=== PATIENT | male | born 1985 | race Caucasian/White ===

== ENCOUNTER 2016-08-05 16:30 | Emergency (ER) | payer OTHER ==
[2016-08-05] MEDS ORDERED: KETOROLAC 30 MG/ML VIAL (J1885) As Ordered ONE (16:48)
--- NOTE | 2016-08-05 17:56 | EDDOCDS ---
Physician Documentation [facility] Name: Davis Brody Age: 31 yrs Sex: Male : 1985 Arrival Date: 08/05/2016 Time: 16:30 Bed PR Private MD: Karely Mcgowan Disposition: 08/05/16 17:50 Discharged to Home/Self Care. Impression: Low back pain. - Condition is Stable. - Discharge Instructions: Flank Pain, Back Pain, Adult, [id number]. - Prescriptions for Diclofenac Sodium 75 mg Oral Tablet, Delayed Release (E.C.) - take 1 tablet by ORAL route 2 times per day; 30 tablet. Robaxin- 750 750 mg Oral Tablet - take 1 tablet by ORAL route every 6 hours As needed; 40 tablet. - Medication Reconciliation, Local Pharmacy Hours form. - Follow up: Karely Mcgowan; When: Call to arrange an appointment; Reason: Further diagnostic work-up, Recheck today's complaints, Continuance of care. - Problem is new. - Symptoms have improved. Historical: - Allergies: PENICILLINS; Seasonal; - Home Meds: 1. none - PMHx: none; - PSHx: none; - Social history: Smoking status: Patient states was never smoker of tobacco. No barriers to communication noted, The patient speaks fluent Malagasy, Speaks appropriately for age. - Family history: Not pertinent. - : The pt / caregiver states he / she is not on anticoagulants. Home medication list is obtained from the patient. - Exposure Risk Screening:: None identified. Vital Signs: 08/05 16:32 BP 159 / 86; Pulse 65; Resp 16; Temp 96.2(O); Pulse Ox 100% on R/A; Weight 86.18 kg / sew 189.99 lbs; Height 5 ft. 11 in. (180.34 cm); Pain 7/10; 17:52 BP 130 / 70; Pulse 65; Resp 18; Temp 96.6(T); Pulse Ox 99% on R/A; Pain 5/10; jb5 16:32 Body Mass Index 26.50 (86.18 kg, 180.34 cm) sew MDM: 16:47 ketorolac 30 mg IM once ordered. btw 16:48 Urinalysis Ordered. EDMS 16:48 CT ABD & PELVIS: No Contrast Ordered. EDMS 17:08 Urinalysis Reviewed. btw 17:29 [facility] Payment Agreement was scanned into [employer] and attached to record. jp5 17:29 Financial registration complete. jp5 Administered Medications: 16:55 Drug: ketorolac 30 mg [ketorolac 30 mg/mL (1 mL) injection solution (1 mL)] Route: IM; [facility] Site: right gluteus; Signatures: Dispatcher [employer] EDMS Aníbal Brown, RN RN ml6 Alphonse Cesar PA PA btw April CourtneyRN RN ld5 Timbo Spaulding jp5 Melissa Noland RN [facility] The chart was reviewed and I authenticate all verbal orders and agree with the evaluation and treatment provided.Attachments: 17:29 [facility] Payment Agreement jp5 MTDD
--- NOTE | 2016-08-05 17:56 | EDDOCDS ---
Nurse's Notes [facility] Name: Davis Brody Age: 31 yrs Sex: Male : 1985 Arrival Date: 08/05/2016 Time: 16:30 Bed PR1 / 25 Private MD: Karely Mcgowan Diagnosis: Low back pain Presentation: 08/05 16:35 Presenting complaint: Patient states: Pain to left lower back for past 4 days. No known ld5 injury. Denies any urinary symptoms. Acute neurological deficits are not present. Mechanism of Injury: No Mechanism of Injury. Adult Sepsis Screening: The patient does not have new or worsening altered mentation. Patient's respiratory rate is less than 22. Systolic blood pressure is greater than 100. Patient has a qSOFA score of 0- Negative Sepsis Screen. Suicide/Homicide risk assessment- the patient denies having any suicidal and/or homicidal ideations and does not present with any other emotional, behavioral or mental health complaints. Status: Patient is not a senior service technician or dependent. Transition of care: patient was not received from another setting of care. 16:35 Acuity: DIALLO Level 4 ld5 16:35 Method Of Arrival: Walkin/Carried/Asstd ld5 Triage Assessment: 16:38 General: Appears in no apparent distress. Pain: Location: left low back Pain currently ld5 is 6 out of 10 on a pain scale. At worst was 8 out of 10 on a pain scale. Quality of pain is described as dull, Alleviated by nothing. Aggravated by nothing. HIV screening NA for this visit Offered previously. Neurological: Level of Consciousness is awake, alert. Respiratory: Airway is patent Respiratory effort is even, unlabored. GI: Denies nausea, vomiting. : Denies burning with urination, inability to void, pain with urination. Musculoskeletal: Range of motion intact in all extremities. Historical: - Allergies: PENICILLINS; Seasonal; - Home Meds: 1. none - PMHx: none; - PSHx: none; - Social history: Smoking status: Patient states was never smoker of tobacco. No barriers to communication noted, The patient speaks fluent Iraqi, Speaks appropriately for age. - Family history: Not pertinent. - : The pt / caregiver states he / she is not on anticoagulants. Home medication list is obtained from the patient. - Exposure Risk Screening:: None identified. Screenin:54 Screening information is obtained from the patient. Fall risk: No risks identified. ml6 Assistance ADL's: requires no assistance with activities of daily living. Abuse/DV Screen: The patient / caregiver reports he/she is: not in a situation that causes fear, pain or injury. Nutritional screening: No deficits noted. Advance Directives: Currently, there is no health care proxy. home support is adequate. Assessment: 17:54 General: Appears in no apparent distress, Behavior is appropriate for age, cooperative. ml6 Pain: Denies pain. Neurological: No deficits noted. Level of Consciousness is awake, alert, Oriented to person, place, time. Cardiovascular: No deficits noted. Respiratory: No deficits noted. Vital Signs: 16:32 BP 159 / 86; Pulse 65; Resp 16; Temp 96.2(O); Pulse Ox 100% on R/A; Weight 86.18 kg; sew Height 5 ft. 11 in. (180.34 cm); Pain 7/10; 17:52 BP 130 / 70; Pulse 65; Resp 18; Temp 96.6(T); Pulse Ox 99% on R/A; Pain 5/10; jb5 16:32 Body Mass Index 26.50 (86.18 kg, 180.34 cm) [facility] Vitals: 16:32 Log In Time: August 05, 2016 at 16:31. [facility] ED Course: 16:32 Patient visited by Rosario Torres. sew 16:32 Karely Mcgowan is Private Physician. sew 16:32 Patient moved to Waiting sew 16:33 Patient visited by Rosario Torres. sew 16:33 Patient moved to Pre RCE sew 16:37 Triage Initiated ld5 16:40 Patient visited by April Courtney RN. ld5 16:40 Patient moved to Triage 3 ld5 16:43 [facility] btw 16:43 Ari Pastor MD is Attending Physician. btw 16:43 Patient visited by Alphonse Cesar PA. btw 16:52 Urinalysis Sent. jb5 16:55 Urine collected. Clean catch specimen. Urine specimen sent to lab. ld5 17:03 Patient moved to [address] 17:21 Patient name changed from Davis\S\V\S\Gervera\S\ to Davis\S\Vincmel\S\Norrisa. EDMS 17:29 [facility] Payment Agreement was scanned into [employer] and attached to record. jp5 17:47 Patient moved to PR ld5 17:48 Patient visited by Kirsten Kramer PCA. jb5 17:50 Karely Mcgowan is Referral Physician. btw 17:52 Patient visited by Kirsten Kramer PCA. jb5 17:52 Patient visited by Kirsten Kramer PCA. jb5 17:54 The patient / caregiver is instructed regarding the plan of care and ED course. ml6 17:55 No IV's were initiated during this patient's visit. No procedures done that require ml6 assistance. Administered Medications: 16:55 Drug: ketorolac 30 mg [ketorolac 30 mg/mL (1 mL) injection solution (1 mL)] Route: IM; [facility] Site: right gluteus; Order Results: Lab Order: Urinalysis; SPEC'M 08/05/16 16:51 Test: APPEARANCE, URINE; Value: CLEAR; Range: CLEAR; Status: F Test: COLOR, URINE; Value: STRAW; Range: YELLOW; Status: F Test: PH,URINE; Value: 5.0; Range: 5.0-9.0; Units: UNITS; Status: F Test: SPECIFIC GRAVITY URINE AUTO; Value: 1.009; Range: 1.002-1.035; Status: F Test: PROTEIN, URINE AUTO; Value: NEGATIVE; Range: NEGATIVE; Units: mg/dL; Status: F Test: GLUCOSE, URINE (UA) AUTO; Value: NEGATIVE; Range: NEGATIVE; Units: mg/dL; Status: F Test: KETONE, URINE AUTO; Value: NEGATIVE; Range: NEGATIVE; Units: mg/dL; Status: F Test: UROBILINOGEN, URINE AUTO; Value: 0.2; Range: 0.0-2.0; Units: mg/dL; Status: F Test: BILIRUBIN, URINE AUTO; Value: NEGATIVE; Range: NEGATIVE; Status: F Test: NITRITE, URINE AUTO; Value: NEGATIVE; Range: NEGATIVE; Status: F Test: LEUKOCYTE ESTERASE, URINE AUTO; Value: NEGATIVE; Range: NEGATIVE; Status: F Test: BLOOD, URINE BLOOD; Value: 1+; Range: NEGATIVE; Abnormal: Above high normal; Status: F Test: WBC, URINE AUTO; Value: 0; Range: 0-3; Units: /HPF; Status: F Test: RBC, URINE AUTO; Value: 1; Range: 0-3; Units: /HPF; Status: F Test: BACTERIA, URINE AUTO; Value: NEGATIVE; Range: NEGATIVE; Status: F Test: SQUAMOUS EPITHELIAL CELL UR AU; Value: 0; Range: 0-6; Units: /HPF; Status: F Test: MUCUS, URINE; Value: SMALL; Range: NEGATIVE; Status: F Test: HYALINE CAST, URINE AUTO; Value: 0; Range: 0-1; Units: /LPF; Status: F Outcome: 17:50 Discharge ordered by Provider. btw 17:54 Discharge Assessment: patient administered narcotics - no. The following High Risk ml6 Discharge criteria are identified: None. Discharged to home ambulatory, with friend. Condition: improved. Discharge instructions given to patient, Instructed on discharge instructions, follow up and referral plans. medication usage, Demonstrated understanding of instructions, medications, Pt was receptive of discharge instructions/ teaching. Prescriptions given X 2. No special radiology studies were completed. Property :Personal belongings accompany Pt. 17:55 Patient left the ED. ml6 Signatures: Dispatcher [employer] EDMS Kirsten Kramer, SERVICE DESK AGENT SERVICE DESK AGENT jb5 Aníbal Brown, RN RN ml6 Alphonse Cesar PA PA btw April Courtney,RN RN ld5 Melissa Noland,RN RN [facility] Brian, Timbo Wall jp5 MTDD
--- NOTE | 2016-08-05 18:02 | REP ---
CT abdomen and pelvis without IV or oral contrast: Renal stone protocol. History: Left flank pain. CT findings: Preliminary digital chair inspector radiograph is unremarkable. The lung bases are clear. The liver and the spleen are normal in size and homogeneous in texture. No adrenal lesion is seen on either side. Pancreas is unremarkable. The gallbladder is small and contracted. Normal appendix is seen in the right lower quadrant. Small and large intestinal bowel loops are unremarkable. There is no evidence of intrarenal calculus on either side. No bladder calculus is seen. No hydronephrosis noted. Bone window settings show no bony destructive lesion. No abdominal wall defect is observed. Impression: Negative CT study of the abdomen and pelvis without IV or oral contrast. No urinary tract calculus or hydronephrosis is seen. Normal appendix seen. Signed by Nikos Culp MD 08/05/2016 07:28 P
--- NOTE | 2016-08-09 09:35 | EDDOCDS ---
Physician Documentation [facility] Name: Davis Brody Age: 31 yrs Sex: Male : 1985 Arrival Date: 08/05/2016 Time: 16:30 Bed PR Private MD: Karely Mcgowan Disposition: 08/05/16 17:50 Discharged to Home/Self Care. Impression: Low back pain. - Condition is Stable. - Discharge Instructions: Flank Pain, Back Pain, Adult, [id number]. - Prescriptions for Diclofenac Sodium 75 mg Oral Tablet, Delayed Release (E.C.) - take 1 tablet by ORAL route 2 times per day; 30 tablet. Robaxin- 750 750 mg Oral Tablet - take 1 tablet by ORAL route every 6 hours As needed; 40 tablet. - Medication Reconciliation, Local Pharmacy Hours form. - Follow up: Karely Mcgowan; When: Call to arrange an appointment; Reason: Further diagnostic work-up, Recheck today's complaints, Continuance of care. - Problem is new. - Symptoms have improved. Historical: - Allergies: PENICILLINS; Seasonal; - Home Meds: 1. none - PMHx: none; - PSHx: none; - Social history: Smoking status: Patient states was never smoker of tobacco. No barriers to communication noted, The patient speaks fluent Paraguayan, Speaks appropriately for age. - Family history: Not pertinent. - : The pt / caregiver states he / she is not on anticoagulants. Home medication list is obtained from the patient. - Exposure Risk Screening:: None identified. Vital Signs: 08/05 16:32 BP 159 / 86; Pulse 65; Resp 16; Temp 96.2(O); Pulse Ox 100% on R/A; Weight 86.18 kg / sew 189.99 lbs; Height 5 ft. 11 in. (180.34 cm); Pain 7/10; 17:52 BP 130 / 70; Pulse 65; Resp 18; Temp 96.6(T); Pulse Ox 99% on R/A; Pain 5/10; jb5 16:32 Body Mass Index 26.50 (86.18 kg, 180.34 cm) sew MDM: 16:47 ketorolac 30 mg IM once ordered. btw 16:48 Urinalysis Ordered. EDMS 16:48 CT ABD & PELVIS: No Contrast Ordered. EDMS 17:08 Urinalysis Reviewed. btw 17:29 [facility] Payment Agreement was scanned into [employer] and attached to record. jp5 17:29 Financial registration complete. jp5 08/06 08:57 T-Sheet-- Draft Copy was scanned into [employer] and attached to record. [facility] Administered Medications: 08/05 16:55 Drug: ketorolac 30 mg [ketorolac 30 mg/mL (1 mL) injection solution (1 mL)] Route: IM; [facility] Site: right gluteus; Signatures: Dispatcher MedHost EDMS Aníbal Brown, RN RN ml6 Alphonse Cesar PA PA btw April Courtney,RN RN luanne5 Timbo Spaulding jp5 Rosario Bolanos Jane RN [facility] The chart was reviewed and I authenticate all verbal orders and agree with the evaluation and treatment provided.Attachments: 17:29 [facility] Payment Agreement jp5 08/06 08:57 T-Sheet-- Draft Copy [facility] Chart Complete MTDD
--- NOTE | 2016-08-09 09:36 | EDDOCDS ---
Nurse's Notes [facility] Name: Davis Brody Age: 31 yrs Sex: Male : 1985 Arrival Date: 08/05/2016 Time: 16:30 Bed PR1 / 25 Private MD: Karely Mcgowan Diagnosis: Low back pain Presentation: 08/05 16:35 Presenting complaint: Patient states: Pain to left lower back for past 4 days. No known ld5 injury. Denies any urinary symptoms. Acute neurological deficits are not present. Mechanism of Injury: No Mechanism of Injury. Adult Sepsis Screening: The patient does not have new or worsening altered mentation. Patient's respiratory rate is less than 22. Systolic blood pressure is greater than 100. Patient has a qSOFA score of 0- Negative Sepsis Screen. Suicide/Homicide risk assessment- the patient denies having any suicidal and/or homicidal ideations and does not present with any other emotional, behavioral or mental health complaints. Status: Patient is not a donor services team leader or dependent. Transition of care: patient was not received from another setting of care. 16:35 Acuity: DIALLO Level 4 ld5 16:35 Method Of Arrival: Walkin/Carried/Asstd ld5 Triage Assessment: 16:38 General: Appears in no apparent distress. Pain: Location: left low back Pain currently ld5 is 6 out of 10 on a pain scale. At worst was 8 out of 10 on a pain scale. Quality of pain is described as dull, Alleviated by nothing. Aggravated by nothing. HIV screening NA for this visit Offered previously. Neurological: Level of Consciousness is awake, alert. Respiratory: Airway is patent Respiratory effort is even, unlabored. GI: Denies nausea, vomiting. : Denies burning with urination, inability to void, pain with urination. Musculoskeletal: Range of motion intact in all extremities. Historical: - Allergies: PENICILLINS; Seasonal; - Home Meds: 1. none - PMHx: none; - PSHx: none; - Social history: Smoking status: Patient states was never smoker of tobacco. No barriers to communication noted, The patient speaks fluent Belgian, Speaks appropriately for age. - Family history: Not pertinent. - : The pt / caregiver states he / she is not on anticoagulants. Home medication list is obtained from the patient. - Exposure Risk Screening:: None identified. Screenin:54 Screening information is obtained from the patient. Fall risk: No risks identified. ml6 Assistance ADL's: requires no assistance with activities of daily living. Abuse/DV Screen: The patient / caregiver reports he/she is: not in a situation that causes fear, pain or injury. Nutritional screening: No deficits noted. Advance Directives: Currently, there is no health care proxy. home support is adequate. Assessment: 17:54 General: Appears in no apparent distress, Behavior is appropriate for age, cooperative. ml6 Pain: Denies pain. Neurological: No deficits noted. Level of Consciousness is awake, alert, Oriented to person, place, time. Cardiovascular: No deficits noted. Respiratory: No deficits noted. Vital Signs: 16:32 BP 159 / 86; Pulse 65; Resp 16; Temp 96.2(O); Pulse Ox 100% on R/A; Weight 86.18 kg; sew Height 5 ft. 11 in. (180.34 cm); Pain 7/10; 17:52 BP 130 / 70; Pulse 65; Resp 18; Temp 96.6(T); Pulse Ox 99% on R/A; Pain 5/10; jb5 16:32 Body Mass Index 26.50 (86.18 kg, 180.34 cm) [facility] Vitals: 16:32 Log In Time: August 05, 2016 at 16:31. [facility] ED Course: 16:32 Patient visited by Roasrio Torres. sew 16:32 Karely Mcgowan is Private Physician. sew 16:32 Patient moved to Waiting sew 16:33 Patient visited by Rosario Torres. sew 16:33 Patient moved to Pre RCE sew 16:37 Triage Initiated ld5 16:40 Patient visited by April Courtney RN. ld5 16:40 Patient moved to Triage 3 ld5 16:43 Alphonse Cesar PA [facility]. btw 16:43 Ari Pastor MD is Attending Physician. btw 16:43 Patient visited by Alphonse Cesar PA. btw 16:52 Urinalysis Sent. jb5 16:55 Urine collected. Clean catch specimen. Urine specimen sent to lab. ld5 17:03 Patient moved to [address] 17:21 Patient name changed from Davis\S\V\S\Gervera\S\ to Davis\S\Vincent\S\Norrisa. EDMS 17:29 [facility] Payment Agreement was scanned into [employer] and attached to record. jp5 17:47 Patient moved to PR ld5 17:48 Patient visited by Kirsten Kramer PCA. jb5 17:50 Karely Mcgowan is Referral Physician. btw 17:52 Patient visited by Kirsten Kramer PCA. jb5 17:52 Patient visited by Kirsten Kramer PCA. jb5 17:54 The patient / caregiver is instructed regarding the plan of care and ED course. ml6 17:55 No IV's were initiated during this patient's visit. No procedures done that require ml6 assistance. 18:38 CT ABD & PELVIS: No Contrast Returned. EDMS 08/06 08:57 T-Sheet-- Draft Copy was scanned into [employer] and attached to record. [facility] Administered Medications: 08/05 16:55 Drug: ketorolac 30 mg [ketorolac 30 mg/mL (1 mL) injection solution (1 mL)] Route: IM; [facility] Site: right gluteus; Order Results: Lab Order: Urinalysis; SPEC'M 08/05/16 16:51 Test: APPEARANCE, URINE; Value: CLEAR; Range: CLEAR; Status: F Test: COLOR, URINE; Value: STRAW; Range: YELLOW; Status: F Test: PH,URINE; Value: 5.0; Range: 5.0-9.0; Units: UNITS; Status: F Test: SPECIFIC GRAVITY URINE AUTO; Value: 1.009; Range: 1.002-1.035; Status: F Test: PROTEIN, URINE AUTO; Value: NEGATIVE; Range: NEGATIVE; Units: mg/dL; Status: F Test: GLUCOSE, URINE (UA) AUTO; Value: NEGATIVE; Range: NEGATIVE; Units: mg/dL; Status: F Test: KETONE, URINE AUTO; Value: NEGATIVE; Range: NEGATIVE; Units: mg/dL; Status: F Test: UROBILINOGEN, URINE AUTO; Value: 0.2; Range: 0.0-2.0; Units: mg/dL; Status: F Test: BILIRUBIN, URINE AUTO; Value: NEGATIVE; Range: NEGATIVE; Status: F Test: NITRITE, URINE AUTO; Value: NEGATIVE; Range: NEGATIVE; Status: F Test: LEUKOCYTE ESTERASE, URINE AUTO; Value: NEGATIVE; Range: NEGATIVE; Status: F Test: BLOOD, URINE BLOOD; Value: 1+; Range: NEGATIVE; Abnormal: Above high normal; Status: F Test: WBC, URINE AUTO; Value: 0; Range: 0-3; Units: /HPF; Status: F Test: RBC, URINE AUTO; Value: 1; Range: 0-3; Units: /HPF; Status: F Test: BACTERIA, URINE AUTO; Value: NEGATIVE; Range: NEGATIVE; Status: F Test: SQUAMOUS EPITHELIAL CELL UR AU; Value: 0; Range: 0-6; Units: /HPF; Status: F Test: MUCUS, URINE; Value: SMALL; Range: NEGATIVE; Status: F Test: HYALINE CAST, URINE AUTO; Value: 0; Range: 0-1; Units: /LPF; Status: F Radiology Order: CT ABD & PELVIS: No Contrast Test: CT ABD & PELVIS: No Contrast REASON FOR EXAMINATION: L flank pain; CT abdomen and pelvis without IV or oral contrast: Renal stone protocol.; ; History: Left flank pain.; ; CT findings: Preliminary digital program management manager radiograph is unremarkable. The lung; bases are clear. The liver and the spleen are normal in size and homogeneous in; texture. No adrenal lesion is seen on either side. Pancreas is unremarkable.; The gallbladder is small and contracted. Normal appendix is seen in the right; lower quadrant. Small and large intestinal bowel loops are unremarkable. There; is no evidence of intrarenal calculus on either side. No bladder calculus is; seen. No hydronephrosis noted. Bone window settings show no bony destructive; lesion. No abdominal wall defect is observed.; ; Impression:; ; Negative CT study of the abdomen and pelvis without IV or oral contrast. No; urinary tract calculus or hydronephrosis is seen. Normal appendix seen.; ; ; Signed by; Nikos Culp MD 08/05/2016 07:28 P; Outcome: 17:50 Discharge ordered by Provider. btw 17:54 Discharge Assessment: patient administered narcotics - no. The following High Risk ml6 Discharge criteria are identified: None. Discharged to home ambulatory, with friend. Condition: improved. Discharge instructions given to patient, Instructed on discharge instructions, follow up and referral plans. medication usage, Demonstrated understanding of instructions, medications, Pt was receptive of discharge instructions/ teaching. Prescriptions given X 2. No special radiology studies were completed. Property :Personal belongings accompany Pt. 17:55 Patient left the ED. ml6 Signatures: Dispatcher [employer] EDKirsten Vargas, LAUREN ASSOCIATE jb5 Aníbal Brown, RN RN ml6 Alphonse Cesar PA PA btw Dickerson, LauraRN RN ld5 Melissa Noland,RN RN [facility] Brian, Timbo Wall Rosario Perea Chart Complete [facility]
--- NOTE | 2016-08-09 09:36 | EDDOCDS ---
Physician Documentation [facility] Name: Davis Brody Age: 31 yrs Sex: Male : 1985 Arrival Date: 08/05/2016 Time: 16:30 Bed PR Private MD: Karely Mcgowan Disposition: 08/05/16 17:50 Discharged to Home/Self Care. Impression: Low back pain. - Condition is Stable. - Discharge Instructions: Flank Pain, Back Pain, Adult, [id number]. - Prescriptions for Diclofenac Sodium 75 mg Oral Tablet, Delayed Release (E.C.) - take 1 tablet by ORAL route 2 times per day; 30 tablet. Robaxin- 750 750 mg Oral Tablet - take 1 tablet by ORAL route every 6 hours As needed; 40 tablet. - Medication Reconciliation, Local Pharmacy Hours form. - Follow up: Karely Mcgowan; When: Call to arrange an appointment; Reason: Further diagnostic work-up, Recheck today's complaints, Continuance of care. - Problem is new. - Symptoms have improved. Historical: - Allergies: PENICILLINS; Seasonal; - Home Meds: 1. none - PMHx: none; - PSHx: none; - Social history: Smoking status: Patient states was never smoker of tobacco. No barriers to communication noted, The patient speaks fluent Ukrainian, Speaks appropriately for age. - Family history: Not pertinent. - : The pt / caregiver states he / she is not on anticoagulants. Home medication list is obtained from the patient. - Exposure Risk Screening:: None identified. Vital Signs: 08/05 16:32 BP 159 / 86; Pulse 65; Resp 16; Temp 96.2(O); Pulse Ox 100% on R/A; Weight 86.18 kg / sew 189.99 lbs; Height 5 ft. 11 in. (180.34 cm); Pain 7/10; 17:52 BP 130 / 70; Pulse 65; Resp 18; Temp 96.6(T); Pulse Ox 99% on R/A; Pain 5/10; jb5 16:32 Body Mass Index 26.50 (86.18 kg, 180.34 cm) sew MDM: 16:47 ketorolac 30 mg IM once ordered. btw 16:48 Urinalysis Ordered. EDMS 16:48 CT ABD & PELVIS: No Contrast Ordered. EDMS 17:08 Urinalysis Reviewed. btw 17:29 [facility] Payment Agreement was scanned into [employer] and attached to record. jp5 17:29 Financial registration complete. jp5 08/06 08:57 T-Sheet-- Draft Copy was scanned into [employer] and attached to record. [facility] Administered Medications: 08/05 16:55 Drug: ketorolac 30 mg [ketorolac 30 mg/mL (1 mL) injection solution (1 mL)] Route: IM; [facility] Site: right gluteus; Signatures: Dispatcher [employer] EDMS Aníbal Brown, RN RN ml6 Alphonse Cesar PA PA btw April Courtney,RN RN [id number] Timbo Spaulding jp5 Rosario Bolanos Jane RN [facility] The chart was reviewed and I authenticate all verbal orders and agree with the evaluation and treatment provided.Attachments: 17:29 [facility] Payment Agreement jp5 08/06 08:57 T-Sheet-- Draft Copy [facility] Chart Complete MTDD
== END 2016-08-05 17:55 | disposition home or self-care (01) ==
LOC: M ED 16:30
DX: M54.5 Low back pain (principal); J30.2 Other seasonal allergic rhinitis; Z88.0 Allergy status to penicillin
CPT/HCPCS: 74176; 81001; 96372; 99284; J1885

== ENCOUNTER 2016-11-19 07:01 | Emergency (ER) | payer OTHER ==
[~2016-11-19] VITALS: Ht 182.9 cm; Wt 86.2 kg
[2016-11-19 07:21] VITALS: BP 161/90
[2016-11-19] MEDS ORDERED: DOXY100C37 PO (07:50)
== END 2016-11-19 08:11 | disposition home or self-care (01) ==
LOC: M ED 07:47
DX: S40.861A Insect bite (nonvenomous) of right upper arm, initial encounter (principal); W57.XXXA Bitten or stung by nonvenomous insect and other nonvenomous arthropods, initial encounter; Y92.89 Other specified places as the place of occurrence of the external cause; Y93.89 Activity, other specified; Y99.9 Unspecified external cause status

== ENCOUNTER → 2018-05-19 | Outpatient (REF) | payer OTHER | LOC: M LAB REF 17:57 | DX: J02.9 Acute pharyngitis, unspecified (principal) | CPT/HCPCS: 87081 ==

== ENCOUNTER → 2019-04-09 | Outpatient (REF) | payer OTHER ==
[~2019-04-09] MED LIST: DOXY100C37 PO
== END ==
LOC: M LAB REF 12:13
PROVIDERS: ATTEND Physician Assistant Medical
DX: J02.9 Acute pharyngitis, unspecified (principal)

== ENCOUNTER → 2020-08-12 | Outpatient (CLI) | payer OTHER ==
--- NOTE | 2020-08-14 08:00 | REP ---
INDICATION: CONTUSION OF LEFT FRONT WALL COMPARISON: None. TECHNIQUE: Frontal view of the chest with multiple views of the left hemithorax. Six total views. FINDINGS: Frontal view of the chest demonstrates no acute cardiopulmonary process, contusion, effusion, or pneumothorax. Multiple views of the left hemithorax demonstrates no acute rib fracture/injury or pathology. IMPRESSION: Normal rib series. <Electronically signed by Michael Sexton > 08/14/20 [id number]
== END ==
LOC: M ADAMS 15:12
PROVIDERS: ATTEND Physician Assistant
DX: S20.212A Contusion of left front wall of thorax, initial encounter (principal); X58.XXXA Exposure to other specified factors, initial encounter; Y92.89 Other specified places as the place of occurrence of the external cause; Y93.89 Activity, other specified; Y99.8 Other external cause status

== ENCOUNTER 2021-02-28 13:53 | Emergency (ER) | payer OTHER ==
[~2021-02-28] VITALS: Ht 182.9 cm; Wt 92.0 kg
[~2021-02-28 13:53] MED LIST changes: -DOXY100C37 PO; +DOXY1CAP62 PO
--- NOTE | 2021-02-28 15:02 | REP ---
INDICATION: CHEST PAIN. COMPARISON: PA chest, 08/12/2020 TECHNIQUE: Portable upright AP view of the chest was obtained. FINDINGS: The lungs are clear. The heart borders, mediastinum and pulmonary vascular pattern normal. There are no bony abnormalities of the chest. IMPRESSION: No evidence of acute cardiopulmonary pathology. <Electronically signed by Bird Serra > 02/28/21 [id number]
[2021-02-28 15:03] LABS: BASO % 0.2 % (0.0-1.0); EOS # 0.2 10^3/uL (0.0-0.5); EOS % 1.7 % (0.0-3.0); HEMATOCRIT 42.6 % (42.0-52.0); HEMOGLOBIN 14.1 g/dl (13.5-17.5); LYMPH # 1.4 10^3/uL (1.5-5.0); LYMPH % 14.1 % (24.0-44.0); MEAN CORPUSCULAR HEMOGLOBIN 27.5 pg (27.0-33.0); MEAN CORPUSCULAR HGB CONC 33.1 g/dl (32.0-36.5); MEAN CORPUSCULAR VOLUME 83.2 fl (80.0-96.0); MONO # 0.6 10^3/uL (0.0-0.8); MONO % 5.6 % (2.0-8.0); NEUTROPHILS # 7.6 10^3/uL (1.5-8.5); NEUTROPHILS % 77.8 % (36.0-66.0); PLATELET COUNT, AUTOMATED 129 10^3/uL (150-450); RED BLOOD COUNT 5.12 10^6/uL (4.30-6.10); WHITE BLOOD COUNT 9.8 10^3/uL (4.0-10.0)
[2021-02-28] MEDS ORDERED: KETOROLAC 30 MG/ML 1ML VIAL IV ONE (15:15)
[2021-02-28 15:30] LABS: ALBUMIN 4.2 GM/DL (3.2-5.2); ALT/SGPT 31 U/L (12-78); BILIRUBIN,DIRECT 0.2 MG/DL (0.0-0.2); BLOOD UREA NITROGEN 15 MG/DL (7-18); CARBON DIOXIDE LEVEL 30 MEQ/L (21-32); CHLORIDE LEVEL 107 MEQ/L (98-107); CREATININE FOR GFR 1.07 MG/DL (0.70-1.30); GLOMERULAR FILTRATION RATE > 60.0 (>60); GLUCOSE, FASTING 75 MG/DL (70-100); LIPASE 66 U/L (73-393); NT-PRO BNP 24 PG/ML (<125); POTASSIUM SERUM 4.2 MEQ/L (3.5-5.1); SODIUM LEVEL 143 MEQ/L (136-145); THYROID STIMULATING HORMONE 0.911 uIU/ML (0.358-3.740); TOTAL PROTEIN 7.2 GM/DL (6.4-8.2)
[2021-02-28] MEDS ORDERED: ISOVUE-370 76% 100ML VIAL As Ordered ONE (15:36)
--- NOTE | 2021-02-28 16:47 | REP ---
INDICATION: vert. point tenderness. COMPARISON: None. TECHNIQUE: Contiguous axial projection images were obtained through the cervical spine. 2D sagittal and coronal reconstructions were performed. FINDINGS: There is loss of the normal cervical lordosis. The intervertebral disc spaces are preserved. The facet joints are normal. There are no compression fractures. There is no spondylolisthesis. There are no abnormal mass effects on the spinal canal. The skull base is unremarkable. The visualized mastoid air cells are clear. The visualized paranasal sinuses are clear. There is no perivertebral soft tissue swelling. The visualized intracranial soft tissues and paravertebral soft tissues have a normal unenhanced appearance. IMPRESSION: Cervical spasm. <Electronically signed by Bird Serra > 02/28/21 [id number]
--- NOTE | 2021-02-28 16:56 | REP ---
INDICATION: chest pain/SOB; r/o TAA. COMPARISON: CTA chest, 05/10/2011. TECHNIQUE: Imaging protocol: CT angiography of the chest with contrast. Contiguous axial projection images were obtained through the chest. 2D sagittal and coronal reconstructions were performed. Radiation optimization: All CT scans at this facility use at least one of these dose optimization techniques: automated exposure control; mA and/or kV adjustment per patient size (includes targeted exams where dose is matched to clinical indication); or iterative reconstruction. Contrast material: ISOVUE 370; Contrast volume: 100 ml; Contrast route: INTRAVENOUS (IV). FINDINGS: Lower neck: The thyroid gland is normal. There is no supraclavicular lymphadenopathy. Mediastinum: No abnormal masses or lymphadenopathy. There is normal residual thymus in the anterior mediastinum. Heart/thoracic aorta/pulmonary arterial tree: The heart size is normal. There is no pericardial effusion. There is no evidence of thoracic aortic aneurysm or aortic dissection. There are no filling defects in the pulmonary arterial tree. Upper abdomen: Normal. Thoracic esophagus: Normal. Chest wall and axilla: The soft tissues of the chest wall appear normal. There is no axillary lymphadenopathy. There are no significant bony abnormalities of the chest. Lung parenchyma: The lungs are clear. There are no pulmonary nodules or masses. There is no significant interstitial or alveolar lung disease. There are no pleural effusions. IMPRESSION: Normal CT angiography of the chest. No significant change. <Electronically signed by Bird Serra > 02/28/21 [id number]
[2021-02-28] MEDS ORDERED: KETO10TAB PO (17:21)
[2021-02-28] MEDS ORDERED: METH-1164 PO (17:21)
[2021-02-28 17:30] VITALS: BP 130/64
[2021-02-28] MEDS ORDERED: methocarbamoL 500 MG TAB PO ONE (17:45)
--- NOTE | 2021-03-01 19:43 | ECGEPIP ---
[facility] - ED Test Date: 2021-02-28 Pat Name: TERRA SANCHEZ Department: Room: - Gender: Male Proof Passer: SEBASTIÁN : 1985 Requested By: Rosaroi Guaman Order Number: [id number] Reading MD: Rosario Guaman Measurements Intervals [place] Rate: 72 P: 28 MT: 146 QRS: 22 QRSD: 100 T: 13 QT: 394 QTc: 431 Interpretive Statements Normal sinus rhythm NSTTW abnormalities No prior Electronically Signed on 03-01-2021 19:43:05 EDT by Rosario Guaman
== END 2021-02-28 17:50 | disposition home or self-care (01) ==
LOC: M ED 13:53
DX: M62.838 Other muscle spasm (principal); Z88.0 Allergy status to penicillin
CPT/HCPCS: 71045; 71275; 72125; 80048; 80076; 83690; 83880; 84443; 84484; 85025; 93005; 93041; 94760; 96374; 99285; J1885; Q9967

== ENCOUNTER → 2021-03-19 | Outpatient (REF) | payer OTHER ==
[~2021-03-19] MED LIST changes: +KETO10TAB PO; +METH-1164 PO
== END ==
LOC: M SMT 13:24
PROVIDERS: ATTEND Urology
DX: Z30.2 Encounter for sterilization (principal)

== ENCOUNTER 2021-07-09 08:19 | Outpatient (CLI) | payer OTHER ==
[~2021-07-09] VITALS: Ht 182.9 cm; Wt 86.2 kg
[~2021-07-09 08:19] MED LIST changes: +ALBUTEROL 90 MCG/ACT 8GM HFA INHALER INH PRN; +ALBUTEROL SULFATE 2.5 MG/0.5 ML INH NEB SOLN INH PRN; +DOXY-443 PO; -DOXY1CAP62 PO; +EPINEPHrine INJ 1 MG/ML 1ML AMP IM PRN; +NS 1,000 ML IV SCH; +diphenhydrAMINE 50MG/ML VIAL (J1200) IV PRN; +methylPREDNISolone 125MG 2ML VIAL IV PRN
[2021-07-09] MEDS ORDERED: CASIRIVIMAB (REGN10933) 600 MG, IMDEVIMAB (REGN10987) 600 MG in NS 250 ML IV ONE (08:30)
[2021-07-09 08:47] VITALS: BP 145/70
[2021-07-09 09:17] VITALS: BP 125/66
[2021-07-09 09:47] VITALS: BP 128/19
== END 2021-07-09 10:47 | disposition home or self-care (01) ==
LOC: M OPCLI4PR 08:19
PROVIDERS: ATTEND Physician Assistant
DX: U07.1 COVID-19 (principal); Z88.0 Allergy status to penicillin

== ENCOUNTER → 2022-01-24 | Outpatient (REF) | payer OTHER ==
[~2022-01-24] MED LIST changes: -ALBUTEROL 90 MCG/ACT 8GM HFA INHALER INH PRN; -ALBUTEROL SULFATE 2.5 MG/0.5 ML INH NEB SOLN INH PRN; -EPINEPHrine INJ 1 MG/ML 1ML AMP IM PRN; -NS 1,000 ML IV SCH; -diphenhydrAMINE 50MG/ML VIAL (J1200) IV PRN; -methylPREDNISolone 125MG 2ML VIAL IV PRN
[2022-01-24 09:37] LABS: SEMEN APPEARANCE OPAQUE (OPAQUE); SEMEN VISCOSITY LIQUID (LIQUID); WBC CONCENTRATION <=1 M/ml (<=1 M/ml)
== END ==
LOC: M SMT 09:07
PROVIDERS: ATTEND Urology
DX: Z30.8 Encounter for other contraceptive management (principal)

== ENCOUNTER 2025-03-30 08:44 | Emergency (ER) | payer OTHER ==
[~2025-03-30 08:44] MED LIST changes: +DOXY-441 PO; -DOXY-443 PO
[2025-03-30 09:57] LABS: BASO # 0.0 10^3/uL (0.0-0.2); BASO % 0.4 % (0.0-1.0); EOS # 0.2 10^3/uL (0.0-0.5); EOS % 2.2 % (0.0-3.0); LYMPH # 1.2 10^3/uL (1.5-5.0); LYMPH % 14.3 % (24.0-44.0); MONO # 0.4 10^3/uL (0.0-0.8); MONO % 5.3 % (2.0-8.0); NEUTROPHILS # 6.3 10^3/uL (1.5-8.5); NEUTROPHILS % 77.3 % (36.0-66.0); PLATELET COUNT, AUTOMATED 120 10^3/uL (150-450)
[2025-03-30] MEDS ORDERED: ISOVUE-370 76% 100 ML VIAL As Ordered ONE (09:59)
[2025-03-30 10:19] LABS: ALT/SGPT 22 U/L (7.0-40); AST/SGOT 16 U/L (<34); CALCIUM LEVEL 9.3 MG/DL (8.5-10.1); CARBON DIOXIDE LEVEL 28 MMOL/L (20-31); CHLORIDE LEVEL 105 MMOL/L (98-107); CREATININE FOR GFR 0.80 MG/DL (0.70-1.30); GLOMERULAR FILTRATION RATE > 90.0 (>60); POTASSIUM SERUM 4.4 MMOL/L (3.5-5.1); SODIUM LEVEL 143 MMOL/L (136-145)
[2025-03-30 10:23] LABS: CK-MB VALUE MASS 2.7 NG/ML (<3.6); CPK CREATINE PHOSPHOKINASE 107 U/L (46-171); MB/CK RELATIVE INDEX 2.52 (< OR =4)
[2025-03-30 10:27] LABS: FREE T4 1.25 NG/DL (0.89-1.76)
[2025-03-30] MEDS: ONDANSETRON 4MG 2ML VIAL IV ONE (10:35)
[2025-03-30] MEDS: MORPHINE 2 MG/ML 1 ML VIAL IV PRN (10:37)
[2025-03-30 11:15] LABS: CK-MB VALUE MASS 2.3 NG/ML (<3.6)
[2025-03-30 11:16] LABS: CPK CREATINE PHOSPHOKINASE 94.0 U/L (46-171); MB/CK RELATIVE INDEX 2.44 (< OR =4)
[2025-03-30 11:30] VITALS: O2SAT 98
[2025-03-30 11:46] VITALS: BP 125/74
[2025-03-30] MEDS ORDERED: OMEP40CA4 PO (12:06)
[2025-03-30] MEDS ORDERED: CARA1TAB6 PO (12:06)
[2025-03-30 12:32] VITALS: TEMP 98.1
== END 2025-03-30 12:33 | disposition home or self-care (01) ==
LOC: M ED 08:44
DX: R07.9 Chest pain, unspecified (principal); R94.31 Abnormal electrocardiogram [ECG] [EKG]; Z88.0 Allergy status to penicillin; Z79.2 Long term (current) use of antibiotics; Z79.899 Other long term (current) drug therapy
CPT/HCPCS: 71045; 71275; 80047; 80048; 80076; 82550; 82553; 83690; 84439; 84443; 84484; 85025; 93005; 93041; 94760; 96374; 96375; 99285; J2405; Q9967

== ENCOUNTER → 2025-07-19 | Outpatient (REF) | payer OTHER ==
[~2025-07-19] MED LIST changes: +CARA1TAB6 PO; +OMEP40CA4 PO
== END ==
LOC: M LAB REF 11:29
DX: B34.9 Viral infection, unspecified (principal)